=== PATIENT | male | born 1970 | race Caucasian/White ===

== ENCOUNTER 2019-07-16 11:59 | Inpatient (IN) | payer OTHER ==
[~2019-07-16 11:59] MED LIST: LIRAGLUTIDE 0.6 MG/0.1 ML PEN.INJCTR SQ SCH
--- NOTE | 2019-07-16 12:09 | BHS.RME ---
Substance Use & Tx History - Substance Use History Alcohol Frequency of use: Daily Substance route: Oral Date of Last Use: 07/16/19 (2 pints daily, 3 x 45 ounce beer) Cocaine (Crack) Frequency of use: Less than 3 times per week Substance route: Inhalation (ex: sniffing or snorting) Date of Last Use: 07/16/19 ($750 daily) Nicotine Frequency of use: Daily Substance route: Smoking Date of Last Use: 07/16/19 (1/2 ppd) Physical/Psych/Mental Status - Behavior Eye Contact: Decreased - Cooperativeness Cooperativeness: Cooperative - Thinking Thought Processes: Loosened - Physical Health Problems Is patient presently having any pain?: No Does patient presently have any injuries (include location): Yes (bridge of nose , working on a car, metal feel on nose) Does patient currently have a fever: No Is patient : No CIWA Nausea/Vomitin-No Nausea/No Vomiting Muscle Tremors: 4-Moderate,w/Arms Extend Anxiety: 3 Agitation: 0-Normal Activity Paroxysmal Sweats: 1-Minimal Palms Moist Orientation: 1-Uncertain about Date Tacttile Disturbances: 0-None Auditory Disturbances: 3-Moderate Harsh/Frighten Visual Disturbances: 0-None Headache: 0-None Present CIWA-Ar Total Score: 12
[2019-07-16 13:21] VITALS: BMI 25.5
--- NOTE | 2019-07-16 13:47 | HP ---
CIWA Score Nausea/Vomitin-No Nausea/No Vomiting Muscle Tremors: 4-Moderate,w/Arms Extend Anxiety: 3 Agitation: 0-Normal Activity Paroxysmal Sweats: 1-Minimal Palms Moist Orientation: 1-Uncertain about Date Tacttile Disturbances: 0-None Auditory Disturbances: 3-Moderate Harsh/Frighten Visual Disturbances: 0-None Headache: 0-None Present CIWA-Ar Total Score: 12 - Admission Criteria OASAS Guidelines: Admission for Medically Managed Detox: Requires at least one of the followin. CIWA greater than 12 2. Seizures within the past 24 hours 3. Delirium tremens within the past 24 hours 4. Hallucinations within the past 24 hours 5. Acute intervention needed for co occurring medical disorder 6. Acute intervention needed for co occurring psychiatric disorder 7. Severe withdrawal that cannot be handled at a lower level of care (continued vomiting, continued diarrhea, abnormal vital signs) requiring intravenous medication and/or fluids 8. Admitting History and Physical - Admission Chief Complaint: Mr. Ji presents to [facility] requesting detox admission for alcohol use disorder. History of Present Illness: Mr. Ji presents to [facility] requesting detox admission for alcohol use disorder. He is a 49 yo gentleman with a PMH of DM and CAD s/p stents 2 mos ago. Psych: none PSH: 2 cardiac stents in May 2019, done in [place] Substance use history Alcohol: 1-2 pints Vodka daily, beer: 3 x 45 ounces daily. No balck outs , no seizures Cocain: first use age 11, last use 2 days ago, 10-15 grams per use Nictotine: 4-5 cigs per day - Smoking History Smoking history: Current every day smoker Have you smoked in the past 12 months: Yes Aproximately how many cigarettes per day: 5 Admission [facility] Allergies/Adverse Reactions: Allergies Allergy/AdvReac Type Severity Reaction Status Date / Time No Known Allergies Allergy Verified 07/16/19 13:08 - Ebola screening Have you traveled outside of the country in the last 21 days: No Have you had contact with anyone from an Ebola affected area: No Have you been sick,other than usual withdrawal symptoms: No Do you have a fever: No - Review of Systems Constitutional: No Symptoms Reported EENT: reports: No Symptoms Reported Respiratory: reports: No Symptoms reported Cardiac: reports: No Symptoms Reported GI: reports: Nausea : reports: No Symptoms Reported Musculoskeletal: reports: No Symptoms Reported Integumentary: reports: Other (healing abrasion over bridge of nose, work related accident when something fell on him, denies LOC) Neuro: reports: No Symptoms reported Endocrine: reports: No Symptoms Reported Hematology: reports: No Symptoms Reported Psychiatric: reports: No Sypmtoms Reported Patient History - Patient Medical History Hx Asthma: No Hx Chronic Obstructive Pulmonary Disease (COPD): No Hx Cardiac Disorders: Yes (2 stents 05/2019 in [place]) Hx Hypertension: No Hx Seizures: No Hx Diabetes: Yes Hx Gastrointestinal Disorders: No Hx Genitourinary Disorders: No Hx Sexually Transmitted Disorders: No Hx Renal Disease (ESRD): No Hx Depression: No Hx Suicide Attempt: No Hx Schizophrenia: No - Patient Surgical History Past Surgical History: No Hx Neurologic Surgery: No Hx Cataract Extraction: No Hx Cardiac Surgery: Yes (2 stents 05/2019) Hx Lung Surgery: No Hx Breast Surgery: No Hx Breast Biopsy: No Hx Abdominal Surgery: No Hx Appendectomy: No Hx Cholecystectomy: No Hx Genitourinary Surgery: No Hx Section: No Hx Orthopedic Surgery: No Anesthesia Reaction: No - PPD History Previous Implant?: Yes (ppd given while incarcerated) Documented Results: Negative w/o proof Implanted On Prior R Admission?: No - Smoking Cessation Smoking history: Current every day smoker Have you smoked in the past 12 months: Yes Aproximately how many cigarettes per day: 5 Cigars Per Day: 0 Hx Chewing Tobacco Use: No Initiated information on smoking cessation: Yes 'Breaking Loose' booklet given: 07/16/19 - Substances abused Cocaine Substance route: Inhalation Frequency: 1-2 times per week Amount used: 15 grams Age of first use: 11 Date of last use: 07/15/19 Alcohol Substance route: Oral Frequency: 3-6 times per week Amount used: 2 pints Vodka, 3 x 45 ounce beer Age of first use: 11 Date of last use: 07/16/19 Admission Physical Exam BHS - Vital Signs Vital Signs: Vital Signs - 24 hr 07/16/19 13:05 Temperature 97.5 F L Pulse Rate 86 Respiratory 18 Rate Blood Pressure 127/74 - Physical General Appearance: Yes: Within Normal Limits HEENTM: Yes: EOMI, Hearing grossly Normal, Other (abrasion, ~2 cm over bridge of nose, scabbing) Respiratory: Yes: Lungs Clear, Normal Breath Sounds Neck: Yes: Within Normal Limits Breast: Yes: Breast Exam Deferred Cardiology: Yes: Regular Rate, S1, S2 Abdominal: Yes: Normal Bowel Sounds, Non Tender, Flat, Soft Back: Yes: Normal Inspection Musculoskeletal: Yes: Within Normal Limits Extremities: Yes: Within Normal Limits Neurological: Yes: Within Normal Limits Integumentary: Yes: Other (multiple tattoos) - Diagnostic (1) Alcohol dependence with withdrawal, uncomplicated Current Visit: Yes Status: Acute (2) Cocaine abuse Current Visit: Yes Status: Acute (3) Nicotine dependence Current Visit: Yes Status: Acute (4) Coronary artery disease Current Visit: Yes Status: Chronic (5) IDDM (insulin dependent diabetes mellitus) Current Visit: Yes Status: Acute Cleared for Admission S - Detox or Rehab [facility] Level of Care: Medically Managed Breathalyzer - Breathalyzer Breathalyzer: 0 Urine Drug Screen - Results Urine drug screen results: FILIPE-Cocaine Inpatient Rehab Admission - Rehab Decision to Admit Inpatient rehab admission?: No
[2019-07-16] MEDS ORDERED: MENTHOL/PHENOL 1 EACH UD MM PRN (13:53)
[2019-07-16] MEDS ORDERED: BISMUTH SUBSALICYLATE 262 MG/15 ML BTL PO PRN (13:53)
[2019-07-16] MEDS ORDERED: MAG HYDROX/AL HYDROX/SIMETH 30 ML UNIT-DOSE CUP PO PRN (13:53)
[2019-07-16] MEDS ORDERED: MAGNESIUM HYDROX 2400MG/30ML ORAL SUSPENSION 30 ML CUP PO PRN (13:53)
[2019-07-16] MEDS ORDERED: METHOCARBAMOL 500 MG TABLET PO PRN (13:53)
[2019-07-16] MEDS ORDERED: IBUPROFEN 400 MG TABLET (FP) PO PRN (13:53)
[2019-07-16] MEDS ORDERED: MAGNESIUM CITRATE 300 ML BOTTLE PO PRN (13:53)
[2019-07-16] MEDS ORDERED: ACETAMINOPHEN 325 MG TABLET (FP) PO PRN ×2 (13:53)
[2019-07-16] MEDS ORDERED: MELATONIN 5 MG TABLETS PO PRN (13:53)
[2019-07-16] MEDS ORDERED: hydrOXYzine PAMOATE 25 MG CAPSULE (FP) PO PRN (13:53)
[2019-07-16] MEDS ORDERED: chlordiazePOXIDE HCL 25 MG CAPSULE PO PRN (13:53)
[2019-07-16] MEDS: metFORMIN HCL 500 MG TABLET (FP) PO SCH ×2 (15:50→17:56)
[2019-07-16] MEDS: TICAGRELOR 90 MG TABLET PO SCH ×2 (15:50→22:38)
[2019-07-16] MEDS: NICOTINE 14 MG/24 HOURS TOPICAL PATCH TD SCH (15:50)
[2019-07-16 17:16] LABS: HEMATOCRIT 36.5 % (35.4-49); HEMOGLOBIN 12.5 GM/dL (11.7-16.9); MCH 33.5 pg (25.7-33.7); MCHC 34.4 g/dl (32.0-35.9); MEAN CELL VOLUME 97.4 fl (80-96); MEAN PLT VOLUME 8.7 fl (7.5-11.1); PLATELET COUNT 203 K/MM3 (134-434); RBC 3.75 M/mm3 (4.00-5.60); RDW 13.7 % (11.9-15.9); WHITE BLOOD COUNT 6.4 K/mm3 (4.0-10.0)
[2019-07-16 17:37] LABS: ALBUMIN 3.7 g/dl (3.4-5.0); BILIRUBIN,TOTAL 0.7 mg/dL (0.2-1); BLOOD UREA NITROGEN 18.4 mg/dL (7-18); CALCIUM 8.9 mg/dL (8.5-10.1); CREATININE 1.4 mg/dL (0.55-1.3); POTASSIUM 4.4 mmol/L (3.5-5.1); TOT PROT 7.1 g/dl (6.4-8.2)
[2019-07-16] MEDS: INSULIN SLIDING SCALE (NOVOLOG) 1 VIAL SQ SCH ×2 (17:48→22:37)
[2019-07-16] MEDS: chlordiazePOXIDE HCL 25 MG CAPSULE PO SCH ×2 (17:52→22:38)
[2019-07-16] MEDS ORDERED: INSULIN SLIDING SCALE (NOVOLOG) 1 VIAL SQ SCH (22:00)
[2019-07-16] MEDS: INSULIN (LEVEMIR) 100 UNITS/ML UNITS SQ SCH (22:37)
[2019-07-16] MEDS: THIAMINE HCL 100 MG TABLET (FP) PO SCH (22:38)
[2019-07-17] MEDS: chlordiazePOXIDE HCL 25 MG CAPSULE PO SCH ×4 (05:23→22:04)
[2019-07-17] MEDS: metFORMIN HCL 500 MG TABLET (FP) PO SCH ×2 (06:44→17:17)
[2019-07-17] MEDS: INSULIN SLIDING SCALE (NOVOLOG) 1 VIAL SQ SCH ×4 (09:00→21:59)
[2019-07-17] MEDS ORDERED: INSULIN SLIDING SCALE (NOVOLOG) 1 VIAL SQ ONE (09:19)
[2019-07-17] MEDS: LIRAGLUTIDE 0.6 MG/0.1 ML PEN.INJCTR SQ SCH (09:40)
[2019-07-17] MEDS: TICAGRELOR 90 MG TABLET PO SCH ×2 (11:46→22:06)
[2019-07-17] MEDS: PRENATAL VITAMINS W/ FOLIC ACID TABLET (FP) PO SCH (11:46)
[2019-07-17] MEDS: NICOTINE 14 MG/24 HOURS TOPICAL PATCH TD SCH (11:48)
--- NOTE | 2019-07-17 13:50 | PN ---
S CIWA - CIWA Score Nausea/Vomitin Muscle Tremors: 2 Anxiety: 2 Agitation: 2 Paroxysmal Sweats: No Perspiration Orientation: 0-Oriented Tacttile Disturbances: 1-Very Mild Itch/Numbness Auditory Disturbances: 0-None Visual Disturbances: 0-None Headache: 2-Mild CIWA-Ar Total Score: 11 S Progress Note (SOAP) Subjective: alert,irritable,anxious,interrupted sleep,tremor Objective: 07/17/19 13:48 Vital Signs Temperature 97.3 F L 07/17/19 08:47 Pulse Rate 94 H 07/17/19 08:47 Respiratory Rate 18 07/17/19 08:47 Blood Pressure 116/66 07/17/19 08:47 O2 Sat by Pulse Oximetry (%) 07/17/19 13:48 Laboratory Last Values WBC 6.4 K/mm3 (4.0-10.0) 07/16/19 14:25 RBC 3.75 M/mm3 (4.00-5.60) L 07/16/19 14:25 Hgb 12.5 GM/dL (11.7-16.9) 07/16/19 14:25 Hct 36.5 % (35.4-49) 07/16/19 14:25 MCV 97.4 fl (80-96) H 07/16/19 14:25 MCH 33.5 pg (25.7-33.7) 07/16/19 14:25 MCHC 34.4 g/dl (32.0-35.9) 07/16/19 14:25 RDW 13.7 % (11.9-15.9) 07/16/19 14:25 Plt Count 203 K/MM3 (134-434) 07/16/19 14:25 MPV 8.7 fl (7.5-11.1) 07/16/19 14:25 Sodium 131 mmol/L (136-145) L 07/16/19 14:25 Potassium 4.4 mmol/L (3.5-5.1) 07/16/19 14:25 Chloride 96 mmol/L (98-107) L 07/16/19 14:25 Carbon Dioxide 27 mmol/L (21-32) 07/16/19 14:25 Anion Gap 9 MMOL/L (8-16) 07/16/19 14:25 BUN 18.4 mg/dL (7-18) H 07/16/19 14:25 Creatinine 1.4 mg/dL (0.55-1.3) H 07/16/19 14:25 Est GFR (CKD-EPI)AfAm 68.85 07/16/19 14:25 Est GFR (CKD-EPI)NonAf 59.41 07/16/19 14:25 POC Glucometer 313 UNITS (80-120) 07/17/19 11:51 Random Glucose 672 mg/dL (74-106) H* 07/16/19 14:25 Calcium 8.9 mg/dL (8.5-10.1) 07/16/19 14:25 Total Bilirubin 0.7 mg/dL (0.2-1) 07/16/19 14:25 AST 53 U/L (15-37) H 07/16/19 14:25 ALT 50 U/L (13-61) 07/16/19 14:25 Alkaline Phosphatase 79 U/L (45-117) 07/16/19 14:25 Total Protein 7.1 g/dl (6.4-8.2) 07/16/19 14:25 Albumin 3.7 g/dl (3.4-5.0) 07/16/19 14:25 RPR Titer Nonreactive (NONREACTIVE) 07/16/19 14:25 Assessment: 07/17/19 13:49 withdrawal symptom Plan: continue detox libium regimen,bgm monitoring with insulin coverage
[2019-07-17] MEDS: THIAMINE HCL 100 MG TABLET (FP) PO SCH (22:04)
[2019-07-17] MEDS: INSULIN (LEVEMIR) 100 UNITS/ML UNITS SQ SCH (22:05)
[2019-07-18] MEDS: chlordiazePOXIDE HCL 25 MG CAPSULE PO SCH ×4 (05:20→22:06)
[2019-07-18] MEDS: metFORMIN HCL 500 MG TABLET (FP) PO SCH ×2 (07:18→16:56)
[2019-07-18] MEDS: INSULIN SLIDING SCALE (NOVOLOG) 1 VIAL SQ SCH ×4 (07:22→21:19)
[2019-07-18] MEDS: LIRAGLUTIDE 0.6 MG/0.1 ML PEN.INJCTR SQ SCH (07:23)
[2019-07-18] MEDS: PRENATAL VITAMINS W/ FOLIC ACID TABLET (FP) PO SCH (10:19)
[2019-07-18] MEDS: TICAGRELOR 90 MG TABLET PO SCH ×2 (10:19→22:06)
[2019-07-18] MEDS: NICOTINE 14 MG/24 HOURS TOPICAL PATCH TD SCH (10:22)
--- NOTE | 2019-07-18 12:00 | PN ---
S CIWA - CIWA Score Nausea/Vomitin-Mild Nausea/No Vomiting Muscle Tremors: 2 Anxiety: 1-Mildly Anxious Agitation: 1-Slight > Activity Paroxysmal Sweats: 1-Minimal Palms Moist Orientation: 0-Oriented Tacttile Disturbances: 0-None Auditory Disturbances: 0-None Visual Disturbances: 0-None Headache: 1-Very Mild CIWA-Ar Total Score: 7 BHS Progress Note (SOAP) Subjective: pt admitted for AUD- no complaints today. Would like to go to rehab after d/c O: Vital Signs - 24 hr 07/17/19 07/17/19 07/18/19 13:45 20:51 00:28 Temperature 97.5 F L 97.9 F Pulse Rate 83 86 Respiratory 19 18 18 Rate Blood Pressure 125/75 128/81 07/18/19 07/18/19 07/18/19 03:43 07:16 08:45 Temperature 97.5 F L 97.7 F Pulse Rate 82 93 H Respiratory 18 18 18 Rate Blood Pressure 138/85 133/89 Laboratory Tests 07/16/19 07/16/19 07/16/19 13:54 14:25 14:25 WBC RBC Hgb Hct MCV MCH MCHC RDW Plt Count MPV Sodium 131 L Potassium 4.4 Chloride 96 L Carbon Dioxide 27 Anion Gap 9 BUN 18.4 H Creatinine 1.4 H Est GFR (CKD-EPI)AfAm 68.85 Est GFR (CKD-EPI)NonAf 59.41 POC Glucometer 593 Random Glucose 672 H* Calcium 8.9 Total Bilirubin 0.7 AST 53 H ALT 50 Alkaline Phosphatase 79 Total Protein 7.1 Albumin 3.7 RPR Titer Nonreactive 07/16/19 07/16/19 07/16/19 14:25 16:36 21:53 WBC 6.4 RBC 3.75 L Hgb 12.5 Hct 36.5 MCV 97.4 H MCH 33.5 MCHC 34.4 RDW 13.7 Plt Count 203 MPV 8.7 Sodium Potassium Chloride Carbon Dioxide Anion Gap BUN Creatinine Est GFR (CKD-EPI)AfAm Est GFR (CKD-EPI)NonAf POC Glucometer > 600 544 Random Glucose Calcium Total Bilirubin AST ALT Alkaline Phosphatase Total Protein Albumin RPR Titer 07/17/19 07/17/19 07/17/19 05:26 11:51 16:27 WBC RBC Hgb Hct MCV MCH MCHC RDW Plt Count MPV Sodium Potassium Chloride Carbon Dioxide Anion Gap BUN Creatinine Est GFR (CKD-EPI)AfAm Est GFR (CKD-EPI)NonAf POC Glucometer [phone] Random Glucose Calcium Total Bilirubin AST ALT Alkaline Phosphatase Total Protein Albumin RPR Titer 07/17/19 07/18/19 21:57 05:19 WBC RBC Hgb Hct MCV MCH MCHC RDW Plt Count MPV Sodium Potassium Chloride Carbon Dioxide Anion Gap BUN Creatinine Est GFR (CKD-EPI)AfAm Est GFR (CKD-EPI)NonAf POC Glucometer 387 275 Random Glucose Calcium Total Bilirubin AST ALT Alkaline Phosphatase Total Protein Albumin RPR Titer f/s 200's/300. a/p AUD- continue detox protocol DM: continue insulin and BGM and SS coverage
[2019-07-18] MEDS ORDERED: INSULIN SLIDING SCALE (NOVOLOG) 1 VIAL SQ ONE (12:37)
[2019-07-18] MEDS: INSULIN (LEVEMIR) 100 UNITS/ML UNITS SQ SCH (21:20)
[2019-07-18] MEDS: THIAMINE HCL 100 MG TABLET (FP) PO SCH (22:06)
[2019-07-19] MEDS ORDERED: chlordiazePOXIDE HCL 10 MG CAPSULE PO PRN
[2019-07-19] MEDS: chlordiazePOXIDE HCL 10 MG CAPSULE PO SCH ×4 (05:27→22:20)
[2019-07-19] MEDS: LIRAGLUTIDE 0.6 MG/0.1 ML PEN.INJCTR SQ SCH (07:41)
[2019-07-19] MEDS: metFORMIN HCL 500 MG TABLET (FP) PO SCH ×2 (07:41→17:15)
[2019-07-19] MEDS: INSULIN SLIDING SCALE (NOVOLOG) 1 VIAL SQ SCH ×4 (07:41→22:23)
--- NOTE | 2019-07-19 10:07 | PN ---
S CIWA - CIWA Score Nausea/Vomitin-Mild Nausea/No Vomiting Muscle Tremors: 2 Anxiety: 1-Mildly Anxious Agitation: 1-Slight > Activity Paroxysmal Sweats: No Perspiration Orientation: 0-Oriented Tacttile Disturbances: 0-None Auditory Disturbances: 0-None Visual Disturbances: 0-None Headache: 1-Very Mild CIWA-Ar Total Score: 6 BHS Progress Note (SOAP) Subjective: without complaints O: Vital Signs - 24 hr 07/18/19 07/18/19 07/18/19 13:19 17:00 20:24 Temperature 98.2 F 97.1 F L 98.2 F Pulse Rate 90 88 95 H Respiratory 20 17 18 Rate Blood Pressure 140/69 149/89 134/82 07/19/19 07/19/19 07/19/19 00:39 04:17 05:18 Temperature 97.5 F L Pulse Rate 77 Respiratory 18 18 18 Rate Blood Pressure 130/73 07/19/19 09:40 Temperature 98.2 F Pulse Rate 94 H Respiratory 18 Rate Blood Pressure 132/75 Laboratory Tests 07/16/19 07/16/19 07/16/19 13:54 14:25 14:25 WBC RBC Hgb Hct MCV MCH MCHC RDW Plt Count MPV Sodium 131 L Potassium 4.4 Chloride 96 L Carbon Dioxide 27 Anion Gap 9 BUN 18.4 H Creatinine 1.4 H Est GFR (CKD-EPI)AfAm 68.85 Est GFR (CKD-EPI)NonAf 59.41 POC Glucometer 593 Random Glucose 672 H* Calcium 8.9 Total Bilirubin 0.7 AST 53 H ALT 50 Alkaline Phosphatase 79 Total Protein 7.1 Albumin 3.7 RPR Titer Nonreactive 07/16/19 07/16/19 07/16/19 14:25 16:36 21:53 WBC 6.4 RBC 3.75 L Hgb 12.5 Hct 36.5 MCV 97.4 H MCH 33.5 MCHC 34.4 RDW 13.7 Plt Count 203 MPV 8.7 Sodium Potassium Chloride Carbon Dioxide Anion Gap BUN Creatinine Est GFR (CKD-EPI)AfAm Est GFR (CKD-EPI)NonAf POC Glucometer > 600 544 Random Glucose Calcium Total Bilirubin AST ALT Alkaline Phosphatase Total Protein Albumin RPR Titer 07/17/19 07/17/19 07/17/19 05:26 11:51 16:27 WBC RBC Hgb Hct MCV MCH MCHC RDW Plt Count MPV Sodium Potassium Chloride Carbon Dioxide Anion Gap BUN Creatinine Est GFR (CKD-EPI)AfAm Est GFR (CKD-EPI)NonAf POC Glucometer 374 313 192 Random Glucose Calcium Total Bilirubin AST ALT Alkaline Phosphatase Total Protein Albumin RPR Titer 07/17/19 07/18/19 07/18/19 21:57 05:19 12:23 WBC RBC Hgb Hct MCV MCH MCHC RDW Plt Count MPV Sodium Potassium Chloride Carbon Dioxide Anion Gap BUN Creatinine Est GFR (CKD-EPI)AfAm Est GFR (CKD-EPI)NonAf POC Glucometer 387 275 306 Random Glucose Calcium Total Bilirubin AST ALT Alkaline Phosphatase Total Protein Albumin RPR Titer 07/18/19 07/18/19 07/19/19 16:48 20:45 05:26 WBC RBC Hgb Hct MCV MCH MCHC RDW Plt Count MPV Sodium Potassium Chloride Carbon Dioxide Anion Gap BUN Creatinine Est GFR (CKD-EPI)AfAm Est GFR (CKD-EPI)NonAf POC Glucometer 286 277 240 Random Glucose Calcium Total Bilirubin AST ALT Alkaline Phosphatase Total Protein Albumin RPR Titer a/p: AUD- continue detox protocol DM- chel, SS coverage d/c on 07/21
[2019-07-19] MEDS: PRENATAL VITAMINS W/ FOLIC ACID TABLET (FP) PO SCH (10:42)
[2019-07-19] MEDS: NICOTINE 14 MG/24 HOURS TOPICAL PATCH TD SCH (10:42)
--- NOTE | 2019-07-19 10:45 | DS ---
[facility] Detox Discharge Summary Admission Date: 07/16/19 Discharge Date: 07/19/19 - History Present History: Alcohol Dependence Pertinent Past History: Pt walked out of the unit twice. Refused to stay for d/c plan. - Physical Exam Results Vital Signs: Vital Signs Temperature 98.2 F 07/19/19 09:40 Pulse Rate 94 H 07/19/19 09:40 Respiratory Rate 18 07/19/19 09:40 Blood Pressure 132/75 07/19/19 09:40 O2 Sat by Pulse Oximetry (%) - Treatment Hospital Course: Detox Protocol Followed - Medication Discharge Medications: Ambulatory Orders Insulin Glargine,Hum.rec.anlog [Lantus] 40 unit SQ HS 07/16/19 Liraglutide [Victoza -] 1.8 mg SQ DAILY@0700 07/16/19 Metformin HCl [Glucophage] 1,000 mg PO BID 07/16/19 Ticagrelor [Brilinta] 90 mg PO BID 07/16/19 - AMA Did Patient Leave Against Medical Advice: Yes
[2019-07-19] MEDS: TICAGRELOR 90 MG TABLET PO SCH ×2 (14:06→22:20)
[2019-07-19] MEDS: THIAMINE HCL 100 MG TABLET (FP) PO SCH (22:20)
[2019-07-19] MEDS: INSULIN (LEVEMIR) 100 UNITS/ML UNITS SQ SCH (22:22)
[2019-07-20] MEDS: chlordiazePOXIDE HCL 10 MG CAPSULE PO SCH ×2 (05:23→18:12)
[2019-07-20] MEDS: LIRAGLUTIDE 0.6 MG/0.1 ML PEN.INJCTR SQ SCH (07:29)
[2019-07-20] MEDS: metFORMIN HCL 500 MG TABLET (FP) PO SCH ×2 (07:31→16:59)
[2019-07-20] MEDS: INSULIN SLIDING SCALE (NOVOLOG) 1 VIAL SQ SCH ×4 (07:31→22:13)
[2019-07-20] MEDS: TICAGRELOR 90 MG TABLET PO SCH ×2 (10:39→22:12)
[2019-07-20] MEDS: PRENATAL VITAMINS W/ FOLIC ACID TABLET (FP) PO SCH (10:39)
[2019-07-20] MEDS: NICOTINE 14 MG/24 HOURS TOPICAL PATCH TD SCH (10:39)
--- NOTE | 2019-07-20 11:22 | PN ---
S CIWA - CIWA Score Nausea/Vomitin-No Nausea/No Vomiting Muscle Tremors: None Anxiety: 2 Agitation: 1-Slight > Activity Paroxysmal Sweats: No Perspiration Orientation: 0-Oriented Tacttile Disturbances: 0-None Auditory Disturbances: 0-None Visual Disturbances: 0-None Headache: 2-Mild CIWA-Ar Total Score: 5 BHS Progress Note (SOAP) Subjective: Patient admitted for etoh withdrawal symptoms. He c/o mild headache and anxiety. Objective: 07/20/19 11:21 Laboratory Tests 07/16/19 07/16/19 07/16/19 13:54 14:25 14:25 WBC RBC Hgb Hct MCV MCH MCHC RDW Plt Count MPV Sodium 131 L Potassium 4.4 Chloride 96 L Carbon Dioxide 27 Anion Gap 9 BUN 18.4 H Creatinine 1.4 H Est GFR (CKD-EPI)AfAm 68.85 Est GFR (CKD-EPI)NonAf 59.41 POC Glucometer 593 Random Glucose 672 H* Calcium 8.9 Total Bilirubin 0.7 AST 53 H ALT 50 Alkaline Phosphatase 79 Total Protein 7.1 Albumin 3.7 RPR Titer Nonreactive 07/16/19 07/16/19 07/16/19 14:25 16:36 21:53 WBC 6.4 RBC 3.75 L Hgb 12.5 Hct 36.5 MCV 97.4 H MCH 33.5 MCHC 34.4 RDW 13.7 Plt Count 203 MPV 8.7 Sodium Potassium Chloride Carbon Dioxide Anion Gap BUN Creatinine Est GFR (CKD-EPI)AfAm Est GFR (CKD-EPI)NonAf POC Glucometer > 600 544 Random Glucose Calcium Total Bilirubin AST ALT Alkaline Phosphatase Total Protein Albumin RPR Titer 07/17/19 07/17/19 07/17/19 05:26 11:51 16:27 WBC RBC Hgb Hct MCV MCH MCHC RDW Plt Count MPV Sodium Potassium Chloride Carbon Dioxide Anion Gap BUN Creatinine Est GFR (CKD-EPI)AfAm Est GFR (CKD-EPI)NonAf POC Glucometer 374 313 192 Random Glucose Calcium Total Bilirubin AST ALT Alkaline Phosphatase Total Protein Albumin RPR Titer 07/17/19 07/18/19 07/18/19 21:57 05:19 12:23 WBC RBC Hgb Hct MCV MCH MCHC RDW Plt Count MPV Sodium Potassium Chloride Carbon Dioxide Anion Gap BUN Creatinine Est GFR (CKD-EPI)AfAm Est GFR (CKD-EPI)NonAf POC Glucometer 387 275 306 Random Glucose Calcium Total Bilirubin AST ALT Alkaline Phosphatase Total Protein Albumin RPR Titer 07/18/19 07/18/19 07/19/19 16:48 20:45 05:26 WBC RBC Hgb Hct MCV MCH MCHC RDW Plt Count MPV Sodium Potassium Chloride Carbon Dioxide Anion Gap BUN Creatinine Est GFR (CKD-EPI)AfAm Est GFR (CKD-EPI)NonAf POC Glucometer 286 277 240 Random Glucose Calcium Total Bilirubin AST ALT Alkaline Phosphatase Total Protein Albumin RPR Titer 07/19/19 07/19/19 07/19/19 10:45 16:41 21:45 WBC RBC Hgb Hct MCV MCH MCHC RDW Plt Count MPV Sodium Potassium Chloride Carbon Dioxide Anion Gap BUN Creatinine Est GFR (CKD-EPI)AfAm Est GFR (CKD-EPI)NonAf POC Glucometer 270 300 400 Random Glucose Calcium Total Bilirubin AST ALT Alkaline Phosphatase Total Protein Albumin RPR Titer 07/20/19 07/20/19 05:24 10:41 WBC RBC Hgb Hct MCV MCH MCHC RDW Plt Count MPV Sodium Potassium Chloride Carbon Dioxide Anion Gap BUN Creatinine Est GFR (CKD-EPI)AfAm Est GFR (CKD-EPI)NonAf POC Glucometer 262 293 Random Glucose Calcium Total Bilirubin AST ALT Alkaline Phosphatase Total Protein Albumin RPR Titer Vital Signs Period Temp Pulse Resp BP Sys/Pepper Pulse Ox Last 24 Hr 97.7 F-98.1 F 78-100 18-18 126-135/77-88 PE alert and oriented x 3 skin warm and dry +perrla , eoms intact bl car s1s2 resp cta bl ext full rom, amb ad ramírez no tremors mildly anxious Assessment: 07/20/19 11:22 Etoh withdrawal symptoms Plan: continue detox encourage oral fluids for d/c in am
[2019-07-20] MEDS: INSULIN (LEVEMIR) 100 UNITS/ML UNITS SQ SCH (22:13)
[2019-07-20] MEDS: THIAMINE HCL 100 MG TABLET (FP) PO SCH (22:13)
[2019-07-20 23:27] VITALS: TEMP 97.7
[2019-07-21] MEDS ORDERED: chlordiazePOXIDE HCL 10 MG CAPSULE PO ONE (05:00)
[2019-07-21] MEDS: metFORMIN HCL 500 MG TABLET (FP) PO SCH (06:31)
[2019-07-21 06:41] VITALS: BP 110/61; PULSE 85
[2019-07-21] MEDS: LIRAGLUTIDE 0.6 MG/0.1 ML PEN.INJCTR SQ SCH (07:44)
[2019-07-21] MEDS: INSULIN SLIDING SCALE (NOVOLOG) 1 VIAL SQ SCH ×2 (07:44→11:12)
--- NOTE | 2019-07-21 10:09 | PN ---
[facility] CIWA - CIWA Score Nausea/Vomitin-No Nausea/No Vomiting Muscle Tremors: 1-None Visible, but [place] Anxiety: 1-Mildly Anxious Agitation: 0-Normal Activity Paroxysmal Sweats: No Perspiration Orientation: 0-Oriented Tacttile Disturbances: 0-None Auditory Disturbances: 0-None Visual Disturbances: 0-None Headache: 0-None Present CIWA-Ar Total Score: 2 BHS Progress Note (SOAP) Subjective: alert,no complaint Objective: 07/21/19 10:08 Vital Signs Temperature 97.7 F 07/21/19 06:40 Pulse Rate 85 07/21/19 06:40 Respiratory Rate 18 07/21/19 06:40 Blood Pressure 110/61 07/21/19 06:40 O2 Sat by Pulse Oximetry (%) Assessment: 07/21/19 10:08 detox completed,no withdrawal symptom Plan: discharge today,follow up with after care program as arrangement [facility]
--- NOTE | 2019-07-21 10:13 | DS ---
[facility] Detox Discharge Summary Admission Date: 07/16/19 Discharge Date: 07/21/19 - History Present History: Alcohol Dependence, Cannabis Dependence Pertinent Past History: iddm nicotine dependence - Physical Exam Results Vital Signs: Vital Signs Temperature 97.7 F 07/21/19 06:40 Pulse Rate 85 07/21/19 06:40 Respiratory Rate 18 07/21/19 06:40 Blood Pressure 110/61 07/21/19 06:40 O2 Sat by Pulse Oximetry (%) Pertinent Admission Physical Exam Findings: alert,oriented x 3 ambulation without difficulty heart normal heart sound lung clear,no wheezing no abdominal pain stable for discharge discharge time spending 35 mins patient declined to go to [facility],will go to [facility] by himself has all his medication - Treatment Hospital Course: Detox Protocol Followed, Detoxed Safely, Responded well, Discharged Condition Good, Rehab Referral Accepted Patient has Accepted a Rehab Referral to: [facility] - Medication Discharge Medications: Ambulatory Orders Insulin Glargine,Hum.rec.anlog [Lantus] 40 unit SQ HS 07/16/19 Liraglutide [Victoza -] 1.8 mg SQ DAILY@0700 07/16/19 Metformin HCl [Glucophage] 1,000 mg PO BID 07/16/19 Ticagrelor [Brilinta] 90 mg PO BID 07/16/19 - Diagnosis (1) Alcohol dependence with withdrawal, uncomplicated Current Visit: Yes Status: Acute (2) Cocaine abuse Current Visit: Yes Status: Acute (3) IDDM (insulin dependent diabetes mellitus) Current Visit: Yes Status: Acute (4) Nicotine dependence Current Visit: Yes Status: Acute (5) Coronary artery disease Current Visit: Yes Status: Chronic - AMA Did Patient Leave Against Medical Advice: No
[2019-07-21] MEDS: NICOTINE 14 MG/24 HOURS TOPICAL PATCH TD SCH (11:12)
[2019-07-21] MEDS: TICAGRELOR 90 MG TABLET PO SCH (11:12)
[2019-07-21] MEDS: PRENATAL VITAMINS W/ FOLIC ACID TABLET (FP) PO SCH (11:12)
== END 2019-07-21 10:16 | disposition home or self-care (01) | DRG 897 ==
LOC: YASAS 11:59 → Y6N 14:14
PROVIDERS: ADMIT Allergy & Immunology; ATTEND Allergy & Immunology
PROC: HZ2ZZZZ Detoxification Services for Substance Abuse Treatment (ICD-10-PCS; principal; 2019-07-16)
DX: F10.230 Alcohol dependence with withdrawal, uncomplicated (principal); F14.10 Cocaine abuse, uncomplicated; F17.210 Nicotine dependence, cigarettes, uncomplicated; I25.10 Atherosclerotic heart disease of native coronary artery without angina pectoris; Z95.5 Presence of coronary angioplasty implant and graft; E10.9 Type 1 diabetes mellitus without complications; Z79.4 Long term (current) use of insulin
CPT/HCPCS: 36415; 80053; 82962; 85027; 86593